=== PATIENT | female | born 1985 | race American Indian/Alaskan Native ===

== ENCOUNTER 2016-05-28 06:40 | Emergency (ER) | payer SELFPAY ==
[2016-05-28 06:55] VITALS: BP 121/89
[2016-05-28 07:13] LABS: Basophils % (Auto) 0.3 % (0.0-1.8); Eosinophils % (Auto) 0.4 % (0.0-4.3); Hematocrit 37.2 % (30.3-42.9); Hemoglobin 12.9 gm/dl (10.1-14.3); Mean Corpuscular HGB Conc 35 % (30-34); Mean Corpuscular Hemoglobin 33 pg (28-32); Mean Corpuscular Volume 94 fl (79-97); Platelet Count 227 K/mm3 (140-440); Red Blood Count 3.95 M/mm3 (3.65-5.03); Red Cell Distribution Width 12.2 % (13.2-15.2); White Blood Count 6.8 K/mm3 (4.5-11.0)
[2016-05-28 07:27] LABS: Bilirubin,Urine NEG (Negative); Blood,Urine SM (Negative); Ketones,Urine 20 mg/dL (Negative); Leukocyte Esterase,Urine NEG (Negative); Mucus,Urine 3+ /HPF; Nitrite,Urine NEG (Negative); Urobilinogen,Urine < 2.0 mg/dL (<2.0)
[2016-05-28 07:32] LABS: Alanine Aminotransferase 8 units/L (7-56); Albumin/Globulin Ratio 1.3 %; Alkaline Phosphatase 47 units/L (35-129); Anion Gap 19 mmol/L; Bilirubin,Total 0.6 mg/dL (0.1-1.2); Blood Urea Nitrogen 6 mg/dL (7-17); Calcium 8.8 mg/dL (8.4-10.2); Carbon Dioxide 21 mmol/L (22-30); Chloride 100.3 mmol/L (98-107); Glucose 117 mg/dL (65-100); Lipase 46 units/L (13-60); Potassium 3.8 mmol/L (3.6-5.0); Sodium 136 mmol/L (137-145)
--- NOTE | 2016-05-28 19:13 | ED Elopement Review ---
ED Pt Elopement review - Results review Lab results: Laboratory Tests 05/28/16 05/28/16 05/28/16 07:04 07:04 07:04 WBC 6.8 RBC 3.95 Hgb 12.9 Hct 37.2 MCV 94 MCH 33 H MCHC 35 H RDW 12.2 L Plt Count 227 Lymph % (Auto) 36.9 H [place] % (Auto) 7.1 Eos % (Auto) 0.4 Baso % (Auto) 0.3 Lymph # 2.5 [place] # 0.5 Eos # 0.0 Baso # 0.0 Seg Neutrophils % 55.3 Seg Neutrophils # 3.8 Sodium 136 L Potassium 3.8 Chloride 100.3 Carbon Dioxide 21 L Anion Gap 19 BUN 6 L Creatinine 0.5 L Estimated GFR > 60 BUN/Creatinine Ratio 12.00 Glucose 117 H Calcium 8.8 Total Bilirubin 0.6 AST 16 ALT 8 Alkaline Phosphatase 47 Total Protein 7.0 Albumin 4.0 Albumin/Globulin Ratio 1.3 Lipase 46 HCG, Qual Positive Urine Color Urine Turbidity Urine pH Ur Specific [place] Urine Protein Urine Glucose (UA) Urine Ketones Urine Blood Urine Nitrite Urine Bilirubin Urine Urobilinogen Ur Leukocyte Esterase Urine WBC (Auto) Urine RBC (Auto) U Epithel Cells (Auto) Urine Mucus 05/28/16 07:13 WBC RBC Hgb Hct MCV MCH MCHC RDW Plt Count Lymph % (Auto) [place] % (Auto) Eos % (Auto) Baso % (Auto) Lymph # [place] # Eos # Baso # Seg Neutrophils % Seg Neutrophils # Sodium Potassium Chloride Carbon Dioxide Anion Gap BUN Creatinine Estimated GFR BUN/Creatinine Ratio Glucose Calcium Total Bilirubin AST ALT Alkaline Phosphatase Total Protein Albumin Albumin/Globulin Ratio Lipase HCG, Qual Urine Color [place] Urine Turbidity Clear Urine pH 5.0 Ur Specific [place] 1.030 Urine Protein 30 mg/dl Urine Glucose (UA) Neg Urine Ketones 20 Urine Blood Sm Urine Nitrite Neg Urine Bilirubin Neg Urine Urobilinogen < 2.0 Ur Leukocyte Esterase Neg Urine WBC (Auto) 2.0 Urine RBC (Auto) 7.0 U Epithel Cells (Auto) 16.0 H Urine Mucus 3+ - Call Back decision Pt Call Back Decision: Call pt to return to ED THAI ( with abdominal pain need to rule out ectopic )
== END 2016-05-28 12:05 | disposition left against medical advice (07) ==
LOC: ED 06:40
DX: R10.9 Unspecified abdominal pain (principal); R11.10 Vomiting, unspecified; Z53.21 Procedure and treatment not carried out due to patient leaving prior to being seen by health care provider
CPT/HCPCS: 36415; 80053; 81001; 83690; 84703; 85025

== ENCOUNTER 2016-06-27 08:34 | Emergency (ER) | payer MEDICAID ==
[2016-06-27] MEDS ORDERED: NACL 0.9% 1000 ML IV STA (19:55)
[2016-06-27] MEDS ORDERED: ZOFRAN IV ONE (19:55)
--- NOTE | 2016-06-27 19:55 | Emergency Department Report ---
ED HPI - General Chief complaint: Nausea/Vomiting/Diarrhea Time Seen by Provider: 06/27/16 19:44 Source: patient, RN notes reviewed Limitations: No Limitations - History of Present Illness Initial comments: This is a 30-year-old female Ab1 at 11 weeks by date and 7 weeks ultrasound who complains of persistent nausea or vomiting. She has been seen previously for this in our ED. She has been given a prescription for diclegis. This medication is helping but she is still having significant nausea vomiting. She describes been able to keep Gatorade down but has been intolerant to most other by mouth intake. She has her first OB follow-up for this next week. She denies any vaginal discharge or bleeding she denies any dysuria but does report occasional small amount of blood in her emesis. She denies any abdominal pain at this time MD Complaint: other (nausea) Onset/Timin -: Gradual, week(s) Location: abdomen Radiation: epigastric Severity scale (0 -10): 4 Improves with: none Worsens with: eating Associated symptoms: denies: vaginal bleeding, vaginal discharge, abdominal pain , dysuria, headache, dysparuenia Vaginal bleeding: none :: Yes - Related Data Home Medications Medication Instructions Recorded Confirmed Last Taken Doxylamine/Pyridoxine HCl 1 each PO QAM 06/27/16 06/27/16 Unknown [Diclegis Dr 10-10 mg Tablet] Previous Rx's Medication Instructions Recorded Last Taken Type Ondansetron [Zofran TAB] 4 mg PO Q8HR PRN #20 tablet 06/28/16 Unknown Rx Allergies Allergy/AdvReac Type Severity Reaction Status Date / Time No Known Allergies Allergy Verified 09/12/15 10:16 ED Review of Systems ROS: Stated complaint: Other details as noted in HPI Constitutional: denies: chills, fever Eyes: denies: eye pain, eye discharge, vision change ENT: denies: ear pain, throat pain Respiratory: denies: cough, shortness of breath, wheezing Cardiovascular: denies: chest pain, palpitations Endocrine: no symptoms reported Gastrointestinal: nausea, vomiting. denies: abdominal pain, diarrhea, hematemesis (occasional) Genitourinary: denies: urgency, dysuria, discharge Musculoskeletal: denies: back pain, joint swelling, arthralgia Skin: denies: rash, lesions Neurological: denies: headache, weakness, paresthesias Psychiatric: denies: anxiety, depression Hematological/Lymphatic: denies: easy bleeding, easy bruising ED Past Medical Hx - Social History Smoking Status: Current Some Day Smoker Substance Use Type: Alcohol, Marijuana - Medications Home Medications: Home Medications Medication Instructions Recorded Confirmed Last Taken Type Doxylamine/Pyridoxine HCl 1 each PO QAM 06/27/16 06/27/16 Unknown History [Blaire Fry 10-10 mg Tablet] Ondansetron [Zofran TAB] 4 mg PO Q8HR PRN #20 tablet 06/28/16 Unknown Rx ED Physical Exam - General General appearance: alert, in no apparent distress - Head Head exam: Present: atraumatic, normocephalic - Eye Eye exam: Present: normal appearance - ENT ENT exam: Present: mucous membranes moist - Neck Neck exam: Present: normal inspection - Respiratory Respiratory exam: Present: normal lung sounds bilaterally. Absent: respiratory distress - Cardiovascular Cardiovascular Exam: Present: regular rate, normal rhythm. Absent: systolic murmur, diastolic murmur, rubs, gallop - GI/Abdominal GI/Abdominal exam: Present: soft, normal bowel sounds, other (gravid uterus c/w dates.) - Extremities Exam Extremities exam: Present: normal inspection - Back Exam Back exam: Present: normal inspection - Neurological Exam Neurological exam: Present: alert, oriented X3 - Psychiatric Psychiatric exam: Present: normal affect, normal mood - Skin Skin exam: Present: warm, dry, intact, normal color. Absent: rash ED Course Vital Signs 06/27/16 06/27/16 06/27/16 17:58 18:00 20:27 Temperature 98.3 F 98.8 F Pulse Rate 80 74 Respiratory 15 15 18 Rate Blood Pressure 111/82 108/80 [Right] O2 Sat by Pulse 99 99 99 Oximetry - Reevaluation(s) Reevaluation #1: 06/28/16 00:29 Patient has had a prolonged stay here in the ED. I have given her a total of 2 L normal saline. She has been able to tolerate small amounts of by mouth. She does report that she has continued to have nausea. Abdomen remained soft and nontender. Heart rate is normal blood pressure is normal. I feel the patient is safe for home. She hasn't provided me with a urine sample yet. I'm not inclined to wait any longer for it. She does have a follow-up with her OB doctor next week. I have encouraged her to return if she is having acute worsening. Otherwise have encouraged her to try this ingests small meals on a frequent basis and work on diet habits that will allow her to keep foods down. ED Medical Decision Making - Lab Data Result diagrams: 06/27/16 Unknown 06/27/16 Unknown Critical care attestation.: If time is entered above; I have spent that time in minutes in the direct care of this critically ill patient, excluding procedure time. ED Disposition Clinical Impression: Hyperemesis gravidarum Disposition: DISCHARGED TO HOME OR SELFCARE Is pt being admited?: No Does the pt Need Aspirin: No Condition: Stable Instructions: Hyperemesis Gravidarum (ED) Additional Instructions: Small amount of food frequently through the day. You can continue with the doxylamine/pyridoxine daily for nausea. I am also writing you for zofran which can be used in addition to the doxylamine for nausea. Prescriptions: Ondansetron [Zofran TAB] 4 mg PO Q8HR PRN #20 tablet PRN Reason: Nausea Referrals: PRIMARY CARE, [Primary Care Provider] - 3-5 Days
[2016-06-27 20:03] LABS: Anion Gap 20 mmol/L; Blood Urea Nitrogen 6 mg/dL (7-17); Calcium 9.4 mg/dL (8.4-10.2); Carbon Dioxide 23 mmol/L (22-30); Chloride 96.1 mmol/L (98-107); Glucose 87 mg/dL (65-100); Potassium 3.8 mmol/L (3.6-5.0); Sodium 135 mmol/L (137-145)
[2016-06-27 20:05] LABS: Amylase 126 units/L (27-131); Lipase 24 units/L (13-60)
[2016-06-27 20:51] LABS: Red Blood Count 4.29 M/mm3 (3.65-5.03); White Blood Count 8.1 K/mm3 (4.5-11.0)
[2016-06-27 20:52] LABS: Basophils % (Auto) 0.6 % (0.0-1.8); Eosinophils % (Auto) 0.5 % (0.0-4.3); Hematocrit 39.7 % (30.3-42.9); Hemoglobin 13.6 gm/dl (10.1-14.3); Mean Corpuscular HGB Conc 34 % (30-34); Mean Corpuscular Hemoglobin 32 pg (28-32); Mean Corpuscular Volume 93 fl (79-97); Platelet Count 222 K/mm3 (140-440); Red Cell Distribution Width 12.3 % (13.2-15.2)
[2016-06-27] MEDS ORDERED: NACL 0.9% 1000 ML IV ONE (23:32)
[2016-06-28 01:18] VITALS: BP 103/62
== END 2016-06-28 01:24 | disposition home or self-care (01) ==
LOC: ED 08:34
DX: O21.0 Mild hyperemesis gravidarum (principal); F12.90 Cannabis use, unspecified, uncomplicated; Z3A.11 11 weeks gestation of pregnancy; Z72.0 Tobacco use
CPT/HCPCS: 36415; 80048; 82150; 83690; 84702; 85025; 96361; 96374; 99283; J2405; J7030